=== PATIENT | male | born 1975 | race Caucasian/White ===

== ENCOUNTER 2020-07-26 13:20 | Emergency (ER) | payer BC ==
[~2020-07-26] VITALS: Ht 177.8 cm; Wt 120.5 kg
[2020-07-26 13:56] VITALS: Ht 177.8 cm; Wt 120.5 kg
[2020-07-26 14:19] LABS: BASOPHILS 0.2 % (0-2); EOSINOPHILS 1.3 % (0-7); HEMATOCRIT 44.5 % (42.0-54.0); HEMOGLOBIN 14.7 g/dL (13.5-17.5); IMMATURE GRANULOCYTES 0.5 % (0-5); LYMPHOCYTES 12.9 % (15-50); MCH 30.1 pg (26.0-34.0); MCV 91.2 fL (80.0-100.0); MEAN PLATELET VOLUME 10.2 fL (7.4-10.4); MONOCYTES 8.2 % (2-11); NEUTROPHILS 76.9 % (40-80); PLATELET COUNT 287 10x3/uL (130-400); RBC 4.88 10x6/uL (4.20-6.10); RDW 12.9 % (11.5-14.5); WBC 12.8 10x3/uL (4.8-10.8)
[2020-07-26 14:28] LABS: APTT 35.5 SECONDS (22.8-39.4); CALC OSMOLALITY 276 mosm/kg (275-300); CALCIUM 9.3 mg/dL (8.5-10.1); CHLORIDE - SERUM 100 mmol/L (98-107); GLUCOSE 98 mg/dL (74-106); INR 0.92 (0.85-1.17); POTASSIUM - SERUM 3.9 mmol/L (3.5-5.1); PROTIME 12.3 SECONDS (11.6-15.0); SODIUM 138 mmol/L (136-145); UREA NITROGEN 15 mg/dL (7-18); eGFR NON AFRICAN AMERICAN 87 mL/min (90-120)
[2020-07-26 14:43] LABS: ALKALINE PHOSPHATASE 82 U/L (30-120); ALT (SGPT) 29 U/L (10-68); BILIRUBIN - TOTAL 0.62 mg/dL (0.2-1.3); CKMB 1.7 U/L (0.0-3.6); CREATINE KINASE 202 UL (21-232); PRO BNP 16 pg/mL (0-125); PROTEIN - SERUM 8.8 g/dL (6.4-8.2)
[2020-07-26 14:45] LABS: TROPONIN-I < 0.017 ng/mL (0.000-0.060)
[2020-07-26 15:02] LABS: ALBUMIN 4.5 g/dL (3.4-5.0)
[2020-07-26] MEDS ORDERED: MUCINEX DM ER1 EAC1 PO (16:34)
[2020-07-26] MEDS ORDERED: ALBUTEROL SULF8.5 GM INH (16:34)
[2020-07-26] MEDS ORDERED: ZYRTEC10 MG PO (16:37)
[2020-07-26] MEDS ORDERED: FLUTICASONE PRO16 GM NASAL (16:37)
[2020-07-26 16:46] VITALS: BP 136/74
== END 2020-07-26 16:47 | disposition home or self-care (01) ==
LOC: D.ER 13:20
PROVIDERS: Family Medicine
DX: J06.9 Acute upper respiratory infection, unspecified (principal); R05 Cough